=== PATIENT | male | born 1985 | race Caucasian/White ===

== ENCOUNTER 2022-01-14 13:19 | Outpatient (CLI) | payer BC, SELFPAY ==
--- NOTE | 2022-01-14 13:36 | MR_ITS ---
WS: [id number] MRI LEFT KNEE HISTORY: PAIN IN LEFT KNEE COMPARISON: None available. Anterior cruciate ligament: Intact. Posterior cruciate ligament: Intact. Medial collateral ligament: Abnormal signal in the MCL. There is fluid like signal in the MCL but no full-thickness tear. The MCL is being displaced from the joint line by partially extruded meniscus an d osteophytes. Posterior lateral corner structures: Mild displacement by an extruded meniscus and osteophytes. Medial menisci: Complex tear posterior horn. Abnormal signal involving a large portion of the meniscu s towards the meniscal root. Meniscus is partially extruded from the joint line. Lateral meniscus: Intrasubstance degeneration. No tear identified with certainty. Extensor mechanism: Distal quadriceps tendon and patellar tendons are intact. Fluid and soft tissue: Large suprapatellar joint effusion. There is mild soft tissue edema surroundin g the knee. No Mark's cyst. Small amount of fluid and edema in the infrapatellar fat pad. Osseous and articular structures: Patellofemoral compartment: Thinning and fissuring in the medial patellar cartilage. No underlying ma rrow edema. Mild narrowing of the joint space and osteophytes. Medial compartment: Moderate narrowing of the medial compartment with loss of cartilage. Osteophytes and meniscal extrusion. There is a small amount of marrow edema along the tibial plateau. Lateral compartment: Mild narrowing of the lateral compartment. Small osteophytes. Partial meniscal e xtrusion. MR/MR knee LT wo con* [id number] IMPRESSION: 1. Large suprapatellar joint effusion. 2. Moderate medial compartment osteoarthritis with joint space narrowing, loss of cartilage, meniscal extrusion, osteophytes and small amount of marrow edema . 3. Lateral compartment mild internal derangement. 4. Complex tear posterior horn medial meniscus involving the free edge and ext ending towards the meniscal root. 5. Mild MCL sprain. 6. Mild fissuring medial patellar facet cartilage.
== END 2022-01-14 13:20 | disposition home or self-care (01) ==
PROVIDERS: PCP Nurse Practitioner Family; Visit Provider Nurse Practitioner Family
DX: M25.562 Pain in left knee (principal); M17.12 Unilateral primary osteoarthritis, left knee; S83.422A Sprain of lateral collateral ligament of left knee, initial encounter; S83.232A Complex tear of medial meniscus, current injury, left knee, initial encounter; M23.8X2 Other internal derangements of left knee; X58.XXXA Exposure to other specified factors, initial encounter
CPT/HCPCS: 73721